=== PATIENT | male | born 1990 | race Caucasian/White ===

== ENCOUNTER 2016-10-29 01:27 | Emergency (ER) | payer SELFPAY ==
[~2016-10-29] VITALS: Ht 170.2 cm; Wt 80.8 kg
[2016-10-29 01:28] VITALS: BP 127/78
[2016-10-29] MEDS ORDERED: BUPIVACAINE/PF 0.5% ONE (02:49)
[2016-10-29] MEDS ORDERED: LIDOCAINE 1%, 20ML ONE (02:49)
[2016-10-29] MEDS ORDERED: LIDOCAINE 1%, 20ML SQ ONE (03:30)
[2016-10-29] MEDS ORDERED: BUPIVACAINE/PF 0.5% INFIL ONE (03:30)
== END 2016-10-29 03:17 | disposition home or self-care (01) ==
LOC: ED 03:11
DX: S63.294A Dislocation of distal interphalangeal joint of right ring finger, initial encounter (principal); S66.314A Strain of extensor muscle, fascia and tendon of right ring finger at wrist and hand level, initial encounter; X58.XXXA Exposure to other specified factors, initial encounter; Y93.89 Activity, other specified; Y99.8 Other external cause status; Y92.009 Unspecified place in unspecified non-institutional (private) residence as the place of occurrence of the external cause
CPT/HCPCS: 26770; 29130